=== PATIENT | female | born 1955 | race Caucasian/White ===

== ENCOUNTER → 2016-11-05 | Outpatient (CLI) | payer MEDICARE | LOC: GMAM 13:55 | PROVIDERS: ATTEND Family Medicine | DX: E55.9 Vitamin D deficiency, unspecified (principal); I10 Essential (primary) hypertension ==

== ENCOUNTER → 2017-02-27 | Outpatient (CLI) | payer MEDICARE | END | disposition home or self-care (01) | LOC: LAB.O 08:53 | PROVIDERS: ATTEND Nurse Practitioner Family | DX: R10.84 Generalized abdominal pain (principal) ==

== ENCOUNTER → 2017-03-03 | Outpatient (CLI) | payer MEDICARE ==
--- NOTE | 2017-03-03 14:17 | MAM ---
EXAM DESCRIPTION: 3D Diagnostic, Bilateral CLINICAL HISTORY: 62 yearsFemaleBREAST LUMP Right axillary palpable mass. COMPARISON: Digital 2-D bilateral screening study 03/03/2017. No prior reports available. TECHNIQUE: Bilateral CC and MLO projection full-field images, 3-D tomosynthesis digital mammographic technique. Also bilateral synthesized CC/ MLO full-field images. CAD not utilized. FINDINGS: The breast parenchymal density pattern is: Heterogeneously dense breast tissue, which may obscure small masses. No skin thickening or nipple retraction . Palpable mass in the right axilla but no mammographic findings with a skin marker is located. Focal asymmetry in the middle third of the upper-outer quadrant of the left breast at the 300 clock position. This is lateral to a small solitary calcification and posterior and lateral to prior biopsy site indicated by localization marker. Stable group of multiple calcifications in the lower inner quadrant of the middle third of the left breast. No focal, stellate mass or density, , and no suspicious microcalcifications bilateral breasts. No focal asymmetry in the right breast. IMPRESSION: BI-RADS CATEGORY: 0 - INCOMPLETE- Need additional imaging evaluation. FOLLOW-UP: Recall for additional imaging: Ultrasound targeted to the region of interest in the lateral aspect of the middle third of the left breast. Written communication explaining the results and follow-up will be mailed to the patient and referring care provider. Electronically signed by: Jonh Barajas MD 03/03/2017 2:16 PM CDT Workstation: [id number]
--- NOTE | 2017-03-03 16:39 | US ---
EXAM DESCRIPTION: Breast,Left ultrasound. CLINICAL HISTORY: 62 yearsFemaleBREAST LUMP. Patient palpates a lump in the right axilla. Possible mass lateral left breast on 3-D breast tomosynthesis mammogram today. COMPARISON: Digital 3-D tomosynthesis bilateral breasts today. TECHNIQUE: Transcutaneous scanning of the middle and posterior third of the lateral left breast utilizing two-dimensional and Doppler modes. Scanning performed by the branch associate and Dr. Barajas. FINDINGS: A small 2 millimeter anechoic rounded structure with well-defined romero is visualized at the 200 clock position of the left breast 6 cm from the nipple. Not associated with a discrete solid mass, parenchymal edema, or calcification. Heterogeneous fatty and fibroglandular tissues are noted in the region of interest. IMPRESSION: 1. BiRads Category 2: Benign. Please refer to bilateral digital 3-D breast tomosynthesis mammographic examination and report today. The findings and the follow-up plan were reviewed in person with the patient after the examination. Electronically signed by: Jonh Barajas MD 03/03/2017 4:37 PM CDT Workstation: [id number]
== END ==
LOC: MAMMO 13:00
PROVIDERS: ATTEND Family Medicine
DX: N63 Unspecified lump in breast (principal)
CPT/HCPCS: 76641; G0279

== ENCOUNTER → 2017-03-13 | Outpatient (CLI) | payer MEDICARE | END | disposition home or self-care (01) | LOC: GMA 10:54 | PROVIDERS: ATTEND Nurse Practitioner Family | DX: R19.7 Diarrhea, unspecified (principal) ==

== ENCOUNTER → 2017-03-29 | Outpatient (CLI) | payer MEDICARE ==
--- NOTE | 2017-03-29 11:54 | US ---
EXAM DESCRIPTION: Gall Bladder CLINICAL HISTORY: 62 years Female, RUQ PAIN, DIARRHEA, NEUROPATHY UNSPECIFIED, DIVERTICULITIS COMPARISON: None. FINDINGS: The liver is echogenic and mildly elongated and 18.2 cm. Fatty infiltration without focal mass is suspected. Common bile duct is normal at 3.6 mm without intrahepatic ductal dilation. Gallbladder is normally distended and tenderness in the right upper quadrant was observed with a normal gallbladder wall without evidence of acute inflammation or stones. Region of the pancreas is grossly normal without cystic or solid mass. No gross abnormality of the kidney is seen with modest cortical thinning noted. The aorta and vena cava were not evaluated. IMPRESSION: Tenderness in the right upper quadrant in the region of the gallbladder with no specific abnormality noted. Incomplete evaluation of the right kidney no gross abnormality except for cortical thinning. Electronically signed by: Wayne Lemus MD 03/29/2017 11:52 AM CDT
== END | disposition home or self-care (01) ==
LOC: US 08:57
PROVIDERS: ATTEND Family Medicine
DX: R19.7 Diarrhea, unspecified (principal); G62.9 Polyneuropathy, unspecified; R10.11 Right upper quadrant pain

== ENCOUNTER → 2017-03-31 | Outpatient (CLI) | payer MEDICARE | END | disposition home or self-care (01) | LOC: GMAM 14:59 | PROVIDERS: ATTEND Family Medicine | DX: R19.7 Diarrhea, unspecified (principal) ==

== ENCOUNTER → 2017-05-05 | Outpatient (CLI) | payer MEDICARE | END | disposition home or self-care (01) | LOC: LAB.O 11:53 | PROVIDERS: ATTEND Nurse Practitioner Family | DX: R76.8 Other specified abnormal immunological findings in serum (principal) ==

== ENCOUNTER → 2017-06-01 | Outpatient (CLI) | payer MEDICARE ==
--- NOTE | 2017-06-02 10:24 | MRI ---
Study: MRI of the brain. Indication: NECK PAIN Technique: Multiplanar, multi sequence MRI of the brain obtained without intravenous contrast. Comparison: None. Findings: No MRI evidence of acute ischemia, acute hemorrhage, mass, mass effect, midline shift, or extra-axial fluid collection. Ventricles are normal in configuration without hydrocephalus. Minimal elevated T2/FLAIR signal abnormality is seen within the periventricular white matter. Although nonspecific, this finding is most consistent with chronic microvascular ischemic change. Global parenchymal volume loss noted as well. Midline structures are intact. Paranasal sinuses are adequately aerated. Mastoid air cells are adequately aerated. Osseous structures and soft tissues demonstrate normal signal characteristics. Impression: No MRI evidence of acute intracranial abnormality. Early senescent changes. Electronically signed by: Ashkan Roldan MD 06/02/2017 10:23 AM [facility]
--- NOTE | 2017-06-02 10:31 | MRI ---
Study: MRI of the Cervical Spine. Indication: NECK PAIN Technique: Multiplanar, multi sequence MRI of the cervical spine was obtained without intravenous contrast. Comparison: None. Findings: Vertebral body height maintained. No marrow infiltrating lesion. Spinal cord normal in caliber and signal. Straightening cervical spine. C2-C3: Moderate bilateral facet arthrosis. No stenosis. C3-C4: Mild disc space height loss and disc desiccation. Trace anterolisthesis. 3.5 mm left eccentric disc bulge. Effacement of the majority CSF. Mild to moderate spinal canal narrowing, mid sagittal thecal sac diameter 8 mm. Moderate left lateral recess narrowing. Severe left and mild right facet arthrosis. Moderate bilateral uncovertebral hypertrophy. Severe left and mild right neural foraminal narrowing. C4-C5: Trace anterolisthesis. Moderate disc space height loss and disc desiccation. 3 mm disc uncovering. Indentation ventral thecal sac with mild spinal canal narrowing, mid sagittal thecal sac diameter 9 mm. Mild bilateral facet arthrosis and uncovertebral hypertrophy. Moderate bilateral neural foraminal narrowing. C5-C6: Severe disc space height loss and disc desiccation. 2 mm disc osteophyte complex. No stenosis. Bridging anterior osteophyte formation. C6-C7: Severe disc space height loss and disc desiccation with anterior bridging osteophyte formation. 1 mm disc bulge. No spinal canal narrowing. Moderate bilateral uncovertebral hypertrophy and mild bilateral neural foraminal narrowing. C7-T1: Severe disc space height loss and disc desiccation. Endplate irregularity with patchy Modic type II endplate changes. 3.5 mm disc osteophyte complex. No spinal canal narrowing. Moderate bilateral uncovertebral hypertrophy with moderate to severe bilateral neural foraminal narrowing. Impression: Multilevel cervical disc disease most pronounced at C3-C4 as detailed above. Electronically signed by: Ashkan Roldan MD 06/02/2017 10:29 AM [facility]
--- NOTE | 2017-06-02 10:48 | US ---
Study: Bilateral Carotid Artery Doppler Sonogram. Indication: RUE WEAKNESS Technique: Multiplanar grayscale and Doppler sonographic images of the bilateral carotid arteries and vertebral arteries were obtained. Findings: The bilateral carotid arteries demonstrate a normal appearance without significant intimal thickening or calcified plaque. Analysis of duplex waveforms and flow velocities indicate no hemodynamically significant stenosis. The vertebral arteries demonstrate antegrade flow. Impression: 1. No hemodynamically significant stenosis of the bilateral carotid arteries. Electronically signed by: Ashkan Roldan MD 06/02/2017 10:47 AM [facility]
== END | disposition home or self-care (01) ==
LOC: MRI 08:28
PROVIDERS: ATTEND Psychiatry & Neurology Neurology
DX: M47.892 Other spondylosis, cervical region (principal); M62.81 Muscle weakness (generalized); R42 Dizziness and giddiness; R25.1 Tremor, unspecified

== ENCOUNTER → 2017-08-31 | Outpatient (CLI) | payer MEDICARE | LOC: GMAM 12:21 | PROVIDERS: ATTEND Family Medicine | DX: E53.8 Deficiency of other specified B group vitamins (principal); E55.9 Vitamin D deficiency, unspecified ==

== ENCOUNTER → 2018-03-02 | Outpatient (CLI) | payer MEDICARE ==
--- NOTE | 2018-03-02 15:03 | US ---
EXAM DESCRIPTION: Breast,Right: Ultrasound CLINICAL HISTORY: 63 yearsFemaleBREAST LUMP. Probable ridge inferior right axilla. Prior right breast biopsy and lumpectomy adjacent breast. COMPARISON: Digital diagnostic mammogram bilateral breasts on this visit. Diagnostic digital breast mammography 03/03/2017. Targeted left breast ultrasound 03/03/2017 TECHNIQUE: Transcutaneous scanning of the left breast utilizing khan-scale and Doppler modes. Scanning performed by the nail sticker and Dr. Barajas. FINDINGS: Scanning of the right axilla and axillary tail of the right breast. A region of decreased echogenicity in the subcutaneous adipose tissue but no definite mass and no capsule. Initial images by nail sticker could not be replicated on subsequent scanning by nail sticker and radiologist. This may represent a region of fibrosis. No distinct solid mass or cyst. No parenchymal edema or large calcifications. No overlying skin changes or abnormal vascularity. IMPRESSION: 1. Bi-Rads Category 3: Probably Benign Findings. 2. Please refer to bilateral digital mammographic examination and report on this visit. The FINDINGS and the FOLLOW-UP plan were reviewed in person with the patient after the examination. Written communication explaining the IMPRESSION and FOLLOW-UP will be mailed to the patient and referring care provider. Electronically signed by: Jonh Barajas MD 03/02/2018 3:02 PM CDT
--- NOTE | 2018-03-02 15:45 | MAM ---
EXAM DESCRIPTION: 3D Diagnostic, Bilateral: Digital Mammography CLINICAL HISTORY: 63 yearsFemalebreast lump . Feels a lump in the inferior right axilla. No family history of breast cancer. Childbirth. Postmenopausal. HRT 5 or more years ago. Bilateral benign breast biopsies.. COMPARISON: Bilateral diagnostic digital breast tomosynthesis 03/02/2017. Targeted right breast ultrasound following this examination.. . TECHNIQUE: Bilateral CC LM MLO projection full-field images, digital mammographic tomosynthesis technique. Bilateral 2-D full-field MLO images. CAD not utilized. FINDINGS: The breast parenchymal density pattern is: Heterogeneously dense breast tissue, which may obscure small masses. No skin thickening or nipple retraction . Left breast axillary lymph nodes. Bilateral biopsy site markers are visualized. Skin marker indicating palpable abnormality in the right axilla. No mammographic abnormality is visualized. Bilateral solitary microcalcifications. Again noted is asymmetric increased tissue posterior third upper inner quadrant right breast. Ultrasound: Scanning of the right axilla and axillary tail of the right breast. A region of decreased echogenicity in the subcutaneous adipose tissue but no definite mass and no capsule. Initial images by reproduction technician could not be replicated on subsequent scanning by reproduction technician and radiologist. This may represent a region of fibrosis. No distinct solid mass or cyst. No parenchymal edema or large calcifications. No overlying skin changes or abnormal vascularity. IMPRESSION: BI-RADS CATEGORY: 3 - PROBABLY BENIGN. Management: Short interval (6-month) follow-up diagnostic digital mammography right breast and targeted right breast ultrasound. The FINDINGS and the FOLLOW-UP plan were reviewed in person with the patient after the examination. Written communication explaining the IMPRESSION and FOLLOW-UP will be mailed to the patient and referring care provider. Electronically signed by: Jonh Barajas MD 03/02/2018 3:44 PM CDT
== END ==
LOC: MAMMO 09:30
PROVIDERS: ATTEND Family Medicine
DX: N63.11 Unspecified lump in the right breast, upper outer quadrant (principal)
CPT/HCPCS: 76641; 77066; G0279

== ENCOUNTER → 2018-03-14 | Outpatient (CLI) | payer MEDICARE | LOC: GMAM 11:13 | PROVIDERS: ATTEND Family Medicine | DX: E53.8 Deficiency of other specified B group vitamins (principal); E55.9 Vitamin D deficiency, unspecified ==

== ENCOUNTER → 2018-12-19 | Outpatient (CLI) | payer MEDICARE | LOC: GMAM 10:20 | PROVIDERS: ATTEND Family Medicine | DX: E53.8 Deficiency of other specified B group vitamins (principal) ==

== ENCOUNTER → 2019-05-08 | Outpatient (CLI) | payer MEDICARE | LOC: GMAJS 14:11 | PROVIDERS: ATTEND Physician Assistant | DX: R10.84 Generalized abdominal pain (principal) ==

== ENCOUNTER → 2019-12-25 | Outpatient (CLI) | payer MEDICARE, OTHER ==
--- NOTE | 2019-12-25 17:52 | US ---
EXAM DESCRIPTION: 3D Diagnostic, Bilateral (accession [id number]), Breast,Right (accession [id number]): Ultrasound CLINICAL HISTORY: 64 yearsFemaleABNORMAL MAMMOGRAM . Probably benign lesion right breast February 2018. Patient missed six-month follow-up for personal reasons. Patient still experiences some pain in masslike feeling in the axillary tail right breast and right axilla. No personal or family history of breast cancer. Menarche age 10. Childbirth age 20. Menopause age 29. HRT less than 5 years ago. Benign left breast biopsy. Lifetime risk of developing breast cancer (Tyrer-Cuzick model)(%): 9.8. COMPARISON: Diagnostic digital bilateral breast tomosynthesis and directed right breast ultrasound February 2018 TECHNIQUE: Bilateral LM, CC, and MLO projection full-field images, digital tomosynthesis technique. Bilateral 2-D digital full-field images: LM, CC, and MLO projections. CAD available for 2-D images.. Transcutaneous scanning of the right breast utilizing khan-scale and Doppler modes. Scanning performed by the cytopathology technologist ; observation by Dr. Barajas. FINDINGS: The breast parenchymal density pattern is: Heterogeneously dense breast tissue, which may obscure small masses. No skin thickening or nipple retraction biopsy site marker anterior superior left breast. Left axillary lymph nodes. Solitary microcalcifications. No mammographic abnormality in the region of interest in the right breast axillary tail or axilla. Group of benign type microcalcifications anterior medial left breast. No new focal, stellate mass or density, focal asymmetry , and no suspicious microcalcifications bilaterally. Ultrasound: Scanning of the upper-outer quadrant of the posterior right breast including the axillary tail in the anterior right axilla. Again noted is a vague low-density area in the immediate subdermal adipose tissue layer measuring 1.1 x 1.0 cm. Similar-appearing tissue, with maximum dimension 1.4 cm, On the prior study in February but not reproducible on follow-up examination the same day. Nonvascular. No dominant solid mass, no distinct cyst or fluid collection. No large calcifications. No overlying skin changes.. IMPRESSION: BI-RADS CATEGORY: 3 - PROBABLY BENIGN. RECOMMENDATIONS: FOLLOW-UP: Short interval (6-month) follow-up subcutaneous lesion right breast seen on ultrasound only. Right breast diagnostic tomosynthesis and directed right breast ultrasound.. The FINDINGS and the FOLLOW-UP plan were reviewed in person with the patient after the examination. Written communication explaining the IMPRESSION and FOLLOW-UP will be mailed to the patient and referring care provider. Electronically signed by: Jonh Barajas MD 12/25/2019 5:51 PM CDT
== END ==
LOC: US 15:00
PROVIDERS: ATTEND Family Medicine
DX: R92.8 Other abnormal and inconclusive findings on diagnostic imaging of breast (principal); R92.1 Mammographic calcification found on diagnostic imaging of breast; M06.9 Rheumatoid arthritis, unspecified
CPT/HCPCS: 36415; 76641; 77066; 80053; 85025; 85651; 86140; G0279

== ENCOUNTER → 2020-05-02 | Outpatient (CLI) | payer MEDICARE, OTHER | LOC: GMAM 11:05 | PROVIDERS: ATTEND Family Medicine | DX: E53.8 Deficiency of other specified B group vitamins (principal); E55.9 Vitamin D deficiency, unspecified; M15.8 Other polyosteoarthritis; E78.2 Mixed hyperlipidemia; I10 Essential (primary) hypertension ==